=== PATIENT | female | born 1990 | race American Indian/Alaskan Native ===

== ENCOUNTER 2017-07-02 18:17 | Emergency (ER) | payer SELFPAY ==
[2017-07-02 18:31] VITALS: BP 118/78
[2017-07-02 19:06] LABS: Bilirubin,Urine NEG (Negative); Blood,Urine NEG (Negative); Ketones,Urine TR mg/dL (Negative); Leukocyte Esterase,Urine NEG (Negative); Nitrite,Urine NEG (Negative); Protein,Urine <15 mg/dL mg/dL (Negative); Urobilinogen,Urine < 2.0 mg/dL (<2.0); WBC,Urine < 1.0 /HPF (0.0-6.0)
== END 2017-07-02 20:10 | disposition left against medical advice (07) ==
LOC: ED 18:17
DX: R10.2 Pelvic and perineal pain (principal); Z53.21 Procedure and treatment not carried out due to patient leaving prior to being seen by health care provider
CPT/HCPCS: 81001; 81025

== ENCOUNTER 2017-09-30 13:40 | Emergency (ER) | payer SELFPAY ==
[2017-09-30 13:54] VITALS: BP 106/57
== END 2017-09-30 16:45 | disposition left against medical advice (07) ==
LOC: ED 13:40
DX: R05 Cough (principal); R51 Headache; Z53.21 Procedure and treatment not carried out due to patient leaving prior to being seen by health care provider